=== PATIENT | male | born 1970 | race American Indian/Alaskan Native ===

== ENCOUNTER 2016-09-18 02:00 | Emergency (ER) | payer OTHER ==
[2016-09-18] MEDS ORDERED: TYLENOL PO ONE (02:24)
[2016-09-18 09:11] VITALS: BP 116/70
--- NOTE | 2016-09-18 10:39 | Emergency Department Report ---
ED Laceration HPI - HPI Chief Complaint: Wound/Laceration Stated Complaint: LACERATION TO LT INDEX FINGER Time Seen by Provider: 09/18/16 10:20 Occurred When: Today Severity: moderate Tetanus Status: Up to Date Laceration Symptoms: Yes Pain, No Foreign Body Sensation, No Numbness, No Weakness Other History: he is a 46-year-old male who presents to ED with finger laceration. Patient states he was at work cleaning out the slicer when someone turned on the machine he checked his hand out of the machine just in time to have the bleed neck is left index finger. Patient remains pain to the finger. Patient denies loss of sensation. She states his tetanus shots are up-to-date ED Review of Systems ROS: Stated complaint: LACERATION TO LT INDEX FINGER Other details as noted in HPI Constitutional: denies: chills, fever Eyes: denies: eye pain, eye discharge, vision change ENT: denies: ear pain, throat pain Respiratory: denies: cough, shortness of breath, wheezing Cardiovascular: denies: chest pain, palpitations Endocrine: no symptoms reported. denies: flushing Gastrointestinal: denies: abdominal pain, nausea, vomiting, diarrhea, constipation, hematemesis Genitourinary: denies: urgency, dysuria, frequency, hematuria Musculoskeletal: denies: back pain, joint swelling, arthralgia Skin: denies: rash, lesions Neurological: denies: headache, weakness, paresthesias Psychiatric: denies: anxiety, depression Hematological/Lymphatic: denies: easy bleeding, easy bruising ED Past Medical Hx - Past Medical History Previous Medical History?: No - Surgical History Past Surgical History?: No - Social History Smoking Status: Current Every Day Smoker Substance Use Type: None - Medications Home Medications: Home Medications Medication Instructions Recorded Confirmed Last Taken Type Cephalexin [Keflex] 250 mg PO BID #10 capsule 09/18/16 Unknown Rx Ibuprofen [Motrin] 800 mg PO Q8HR PRN #30 tablet 09/18/16 Unknown Rx Laceration Physical Exam - Exam General: Vital signs noted. No distress. Alert and acting appropriately. Wound Length (cm): 2 Laceration Location: Upper Extremity Full Body Front + Back: 1 - 2cm horizontal lac Laceration Exam: Yes Normal Distal CMS, No Foreign Body, No Exposed Tendon, Vessel, or Nerve, No Tendon Injury ED Course Vital Signs 09/18/16 09/18/16 09/18/16 02:18 06:24 09:10 Temperature 98.1 F 97.9 F Pulse Rate 75 65 58 L Respiratory 20 18 16 Rate Blood Pressure 116/72 112/64 Blood Pressure 116/70 [Right] O2 Sat by Pulse 98 98 Oximetry - Laceration /Wound Repair Left Medial Distal Hand Wound Location: upper extremity Wound Length (cm): 2 Wound's Depth, Shape: superficial Wound Explored: no foreign body removed Irrigated w/ Saline (ccs): 200 Betadine Prep?: Yes Anesthesia: 1% Lidocaine Wound Repaired With: sutures Suture Size/Type: 4:0 Number of Sutures: 5 Layer Closure?: No Sterile Dressing Applied?: Yes ED Medical Decision Making - Medical Decision Making 46-year-old male presents with finger laceration. ED course: Patient received 1 tablet of Thicket. The 2cm laceration wound was prepped and draped in sterile fashion. Anesthesia was achieved with 4mL of 1% lidocaine. The wound was irrigated with 200cc NS and explored. There were no foreign bodies The wound was reapproximated in 1 layer with 5 sutures suing with three 4-0 monofilament sutures in the dermis with interrupted sutures percutaneously. There was excellent reapproximation of the wound edges. The patient tolerated the procedure without complication. Discussed the patient to return in 8-14 days for suture removal. Discussed to keep draped wound dry Discussed at change dressing daily after 48 hours Critical care attestation.: If time is entered above; I have spent that time in minutes in the direct care of this critically ill patient, excluding procedure time. ED Disposition Clinical Impression: Laceration of index finger of left hand without complication Qualifiers: Encounter type: initial encounter Qualified Code(s): S61.211A - Laceration without foreign body of left index finger without damage to nail, initial encounter Disposition: DISCHARGED TO HOME OR SELFCARE Is pt being admited?: No Does the pt Need Aspirin: No Condition: Stable Instructions: Suture Care (ED), Laceration (ED), Suture Removal (ED) Prescriptions: Cephalexin [Keflex] 250 mg PO BID #10 capsule Ibuprofen [Motrin] 800 mg PO Q8HR PRN #30 tablet PRN Reason: Pain Referrals: PRIMARY CARE, [Primary Care Provider] - 3-5 Days CORNELIUS MALIN MD [Referring] - 3-5 Days RAINER CAPPS MD [Referring] - 3-5 Days DREAD HERNANDEZ MD [Staff Physician] - 3-5 Days [facility] [Outside] - 3-5 Days [facility] [Outside] - 3-5 Days [facility] [Outside] - 3-5 Days Forms: Accompanied Note, Work/School Release Form(ED) Time of Disposition: 11:08
[2016-09-18] MEDS ORDERED: TRIPLE ANTIBIOTIC TP ONE (10:43)
[2016-09-18] MEDS ORDERED: XYLOCAINE 1% 20 mL INFILTRATI NR (11:00)
== END 2016-09-18 11:47 | disposition home or self-care (01) ==
LOC: ED 02:00
DX: S61.211A Laceration without foreign body of left index finger without damage to nail, initial encounter (principal); F17.200 Nicotine dependence, unspecified, uncomplicated; X58.XXXA Exposure to other specified factors, initial encounter; Y93.89 Activity, other specified; Y99.8 Other external cause status; Y92.89 Other specified places as the place of occurrence of the external cause
CPT/HCPCS: A6250